=== PATIENT | male | born 1985 | race Caucasian/White ===

== ENCOUNTER 2023-05-25 23:25 | Emergency (ER) | payer OTHER ==
[~2023-05-25] VITALS: Ht 167.6 cm; Wt 99.8 kg
[2023-05-25 23:49] VITALS: BP_SYST 144; PULSE 68; RESP 17; TEMP 98.1; O2SAT 95
[2023-05-26 03:53] VITALS: BP_SYST 140; PULSE 65; RESP 17; TEMP 98; O2SAT 95
== END 2023-05-26 03:53 | disposition home or self-care (01) ==
LOC: SED 23:25
DX: S63.287A Dislocation of proximal interphalangeal joint of left little finger, initial encounter (principal); S63.297A Dislocation of distal interphalangeal joint of left little finger, initial encounter; Z79.899 Other long term (current) drug therapy; W18.2XXA Fall in (into) shower or empty bathtub, initial encounter; Y93.89 Activity, other specified; Y92.89 Other specified places as the place of occurrence of the external cause; Y99.8 Other external cause status
CPT/HCPCS: 73140-TC; 99284